=== PATIENT | male | born 1950 | race Hispanic/Latino ===

== ENCOUNTER 2024-05-03 22:54 | Emergency (ER) | payer OTHER ==
[2024-05-04] MEDS ORDERED: ONDANSETRON 4 MG/2 ML VIAL ONE (00:17)
[2024-05-04] MEDS ORDERED: FAMOTIDINE 20 MG/2 ML VIAL IV ONE (00:17)
[2024-05-04] MEDS ORDERED: MORPHINE 4 MG/ML SYR ONE (00:17)
[2024-05-04 00:59] LABS: Absolute Lymphocytes (CBC) 0.6 K/uL (0.7-4.9); Absolute Monocytes 0.7 K/uL (0.1-1.3); Absolute Neutrophil 12.6 K/uL (1.8-8.0); Basophils % 0.2 % (0-1.3); Hematocrit 40.1 % (39.6-49.0); Hemoglobin 13.3 g/dL (13.6-17.9); MCH 29.9 pg (27.0-35.0); MCHC 33.3 g/dL (32.0-36.0); MCV 89.9 fL (80-100); MPV 7.7 fL (7.6-11.3); Monocytes % 4.7 % (3.3-12.3); Neutrophils % 91.1 % (41.7-73.7); Nucleated Red Blood Cells % 0.1 % (0-0); Platelets 234 thou/uL (152-406); RBC Red Blood Cell Count 4.46 M/uL (4.33-5.43); Red Cell Distribution Width 13.9 % (12.1-15.2)
[2024-05-04 01:12] LABS: Albumin 4.2 g/dL (3.4-5.0); Bilirubin Direct 0.2 mg/dL (0-0.2); Bilirubin Indirect, Calculated 0.5 mg/dL (0.2-0.8); Bilirubin Total 0.7 mg/dL (0.2-1.0); Globulin 4.2 g/dL (2.3-3.5); Magnesium 2.3 mg/dL (1.6-2.4); Protein, Total 8.4 g/dL (6.4-8.2); Troponin High Sensitivity 6.5 pg/mL (<58.9)
[2024-05-04 01:16] LABS: PT Prothrombin Time 12.5 SECONDS (9.4-12.5); Protime INR 1.12
[2024-05-04 01:30] LABS: Band Neutrophils 13 % (0-1); Blood Morphology Comment NOT SEEN (NOT SEEN); Differential Total Cells Count 100; Eosinophils 1 % (0-3); Lymphocytes 8 % (15-42); Monocytes 7 % (0-10); Platelet Estimate ADEQ; Segmented Neutrophils 71 % (40-80)
--- NOTE | 2024-05-04 02:54 | EDPHYS ---
Physician Documentation [facility] Name: Delbert Pacheco Age: 73 yrs Sex: Male : 1950 Arrival Date: 05/03/2024 Time: 22:54 Bed 18 Private MD: ED Physician Chaitanya Ferrell HPI: 05/03 23:35 This 73 yrs old Male presents to ER via Ambulatory with complaints of cp Nausea/Vomiting, Abdominal Pain. 23:35 The patient presents to the emergency department with abdominal pain, of the right cp upper quadrant and left upper quadrant. Onset: The symptoms/episode began/occurred this morning, after eating breakfast. Associated signs and symptoms: Pertinent positives: nausea, vomiting, started this evening after working outside all day, Pertinent negatives: diarrhea, fever, GI bleeding. Severity of symptoms: in the emergency department the symptoms are unchanged despite home interventions. Historical: - Allergies: 23:13 No Known Allergies; jb4 - PMHx: 23:13 Hernia; jb4 - PSHx: 23:13 hernia repair. (Hernia); jb4 - Immunization history:: Adult Immunizations up to date. - Infectious Disease History:: Denies. - Social history:: Smoking status: Patient denies any tobacco usage or history of. Patient/guardian denies using alcohol, street drugs. ROS: 23:40 Constitutional: Positive for poor PO intake, Negative for body aches, fever, cp 23:40 Eyes: Negative for injury, pain, redness, and discharge, cp 23:40 Respiratory: Negative for cough, shortness of breath, wheezing, 23:40 Abdomen/GI: Positive for abdominal pain, nausea and vomiting, Negative for diarrhea, hematemesis, Exam: 23:45 Constitutional: The patient appears in no acute distress, alert, awake, cp non-diaphoretic, non-toxic, well developed, well nourished, uncomfortable, 23:45 Head/Face: Normocephalic, atraumatic. cp 23:45 Eyes: Periorbital structures: appear normal, Conjunctiva: normal, no exudate, no injection, Sclera: no appreciated abnormality, Lids and lashes: appear normal, bilaterally, 23:45 ENT: External ear(s): are unremarkable, Nose: is normal, Mouth: Lips: moist, Oral mucosa: pink and intact, moist, Posterior pharynx: Airway: no evidence of obstruction, patent, 23:45 Chest/axilla: Inspection: normal, 23:45 Cardiovascular: Rate: normal, Rhythm: regular, 23:45 Respiratory: the patient does not display signs of respiratory distress, Respirations: normal, no use of accessory muscles, no retractions, labored breathing, is not present, Breath sounds: are clear throughout, no decreased breath sounds, no stridor, no wheezing, 23:45 Abdomen/GI: Inspection: abdomen appears normal, Bowel sounds: active, all quadrants, Palpation: soft, in all quadrants, moderate abdominal tenderness, in the right upper quadrant and left upper quadrant, 23:45 Back: pain, is absent, 23:45 Neuro: Orientation: to person, place \T\ time. Mentation: is normal, Motor: moves all fours, no focal deficits, Sensation: is normal, 05/04 00:00 ECG was reviewed by the Attending Physician. Vital Signs: 05/03 23:11 BP 182 / 85; Pulse 75; Resp 16; Temp 96.8(TE); Pulse Ox 97% on R/A; Weight 89.81 kg jb4 (R); Height 5 ft. 5 in. ; 08 00:00 BP 149 / 84; Pulse 53; Resp 18; Pulse Ox 97% ; cp4 01:00 BP 124 / 65; Pulse 61; Resp 18; Pulse Ox 95% ; cp4 02:00 BP 136 / 74; Pulse 61; Resp 18; Pulse Ox 96% ; cp4 03:05 BP 123 / 65; Pulse 59; Resp 18; Temp 97.4; Pulse Ox 97% ; cp4 05/03 23:11 Body Mass Index 32.95 (89.81 kg, 165.1 cm) jb4 MDM: 05/03 23:28 Patient medically screened. cp 08 02:53 Data reviewed: vital signs. ED course: CT imaging shows enteritis, uncomplicated ec2 diverticulosis, lipoma noted. Will have the patient follow-up outpatient. Will discharge home with Zofran. Return precautions given. . 05/03 23:45 Order name: Basic Metabolic Panel; Complete Time: 01:36 cp 05/03 23:45 Order name: CBC with Diff; Complete Time: 01:36 cp 05/03 23:45 Order name: LFT's; Complete Time: 01:36 cp 05/03 23:45 Order name: Magnesium; Complete Time: 01:36 cp 05/03 23:45 Order name: PT-INR; Complete Time: 01:36 cp 05/03 23:45 Order name: Troponin HS; Complete Time: 01:36 cp 05/03 23:45 Order name: CK; Complete Time: 01:36 cp 05/03 23:45 Order name: Lipase; Complete Time: 01:36 cp 05/04 01:03 Order name: Manual Differential; Complete Time: 01:36 EDMS 08 23:45 Order name: XRAY Chest (1 view) cp 05/03 23:46 Order name: CT Abd/Pelvis - IV Contrast Only cp 05/03 23:45 Order name: Cardiac monitoring; Complete Time: 00:07 cp 05/03 23:45 Order name: EKG - Nurse/Tech; Complete Time: 00:07 cp 05/03 23:45 Order name: IV Saline Lock; Complete Time: 00:15 cp 05/03 23:45 Order name: Labs collected and sent; Complete Time: 00:15 cp 05/03 23:45 Order name: O2 Per Protocol; Complete Time: 00:07 cp 05/03 23:45 Order name: O2 Sat Monitoring; Complete Time: 00:07 cp EC:00 Rate is 65 beats/min. Rhythm is regular. OK interval is normal. QRS interval is normal. cp QT interval is normal. T waves are Inverted in lead aVR. Interpreted by me. Reviewed by me. Administered Medications: 00:26 Drug: Ondansetron IVP 4 mg IVP once; over 2 minutes Route: IVP; Site: right antecubital;cp4 03:07 Follow up: Response: No adverse reaction cp4 00:26 Drug: Famotidine IVP 20 mg IVP once; dilute with 10 mL 0.9% NaCl; give over 2 minutes cp4 Route: IVP; Site: right antecubital; 03:07 Follow up: Response: No adverse reaction cp4 00:26 Drug: morphine IVP or IV 4 mg IVP once over 4 mins Route: IVP; Infused Over: 4 mins; cp4 Site: right antecubital; 03:07 Follow up: Response: No adverse reaction; Pain is decreased cp4 Disposition: 02:53 I agree with the assessment and plan of care. ec2 Disposition Summary: 05/04/24 02:53 Discharge Ordered Notes: Location: Home ec2 Condition: Stable ec2 Diagnosis - Infectious gastroenteritis and colitis, unspecified ec2 Followup: ec2 - With: Private Physician - When: - Reason: Re-evaluation by your physician Discharge Instructions: - Discharge Summary Sheet ec2 - Viral Gastroenteritis, Adult ec2 Forms: - Medication Reconciliation Form ec2 - Antibiotic Education ec2 - Prescription Opioid Use ec2 - Patient Portal Instructions ec2 - Leadership Thank You Letter ec2 Prescriptions: - Zofran 4 mg Oral Tablet - take 1 tablet ORAL route every 12 hours As needed; 20 tablet; Refills: 0, ec2 Product Selection Permitted - dicyclomine 10 mg Oral capsule - take 1 capsule ORAL route 3 times per day; 20 capsule; Refills: 0, Product ec2 Selection Permitted Signatures: Dispatcher [employer] EDMS Choco Tripathi PA PA cp Nile Mason RN RN jb4 Chaitanya Ferrell MD MD ec2 Alma Parks cp4 Corrections: (The following items were deleted from the chart) 05/03 23:45 23:45 Chest Single View+[email or web address] ordered. EDWI EDMS
--- NOTE | 2024-05-04 02:54 | ER ---
Nurse's Notes [facility] Name: Delbert Pacheco Age: 73 yrs Sex: Male : 1950 Arrival Date: 05/03/2024 Time: 22:54 Bed 18 Private MD: Diagnosis: Infectious gastroenteritis and colitis, unspecified Presentation: 05/03 23:11 Chief complaint: Patient states: I am having nausea, vomiting, and abdominal cramps. It jb4 all started this morning. Coronavirus screen: At this time, the client does not indicate any symptoms associated with coronavirus-19. Ebola Screen: No symptoms or risks identified at this time. Initial Sepsis Screen: Does the patient meet any 2 criteria? No. Patient's initial sepsis screen is negative. Does the patient have a suspected source of infection? No. Patient's initial sepsis screen is negative. Risk Assessment: Do you want to hurt yourself or someone else? Patient reports no desire to harm self or others. Onset of symptoms was May 03, 2024. Transition of care: patient was not received from another setting of care. 23:11 Method Of Arrival: Ambulatory jb4 23:11 Acuity: CANDICE 3 jb4 Triage Assessment: 23:13 General: Appears in no apparent distress. uncomfortable, Behavior is calm, cooperative, jb4 appropriate for age. Pain: Complains of pain in abdomen. Neuro: Level of Consciousness is awake, alert, obeys commands, Oriented to person, place, time, situation. Cardiovascular: Patient's skin is warm and dry. Respiratory: Airway is patent Respiratory effort is even, unlabored, Respiratory pattern is regular, symmetrical. GI: Reports lower abdominal pain, upper abdominal pain, nausea, vomiting. Historical: - Allergies: 23:13 No Known Allergies; jb4 - PMHx: 23:13 Hernia; jb4 - PSHx: 23:13 hernia repair. (Hernia); jb4 - Immunization history:: Adult Immunizations up to date. - Infectious Disease History:: Denies. - Social history:: Smoking status: Patient denies any tobacco usage or history of. Patient/guardian denies using alcohol, street drugs. Screenin/09 02:11 [facility] ED Fall Risk Assessment (Adult) History of falling in the last 3 months, cp4 including since admission No falls in past 3 months (0 pts) Confusion or Disorientation No (0 pts) Intoxicated or Sedated No (0 pts) Impaired Gait No (0 pts) Mobility Assist Device Used No (0 pt) Altered Elimination No (0 pt) Score/Fall Risk Level 0 - 2 = Low Risk Oriented to surroundings, Maintained a safe environment, Assessed \T\ reinforced patient's understanding of fall precautions, Hourly rounding (assess needs \T\ fall precautionary measures) done. Abuse screen: Denies threats or abuse. Nutritional screening: No deficits noted. Tuberculosis screening: No symptoms or risk factors identified. Assessment: 02:11 General: Appears uncomfortable, Behavior is calm, cooperative, appropriate for age. cp4 Pain: Complains of pain in left upper quadrant and right upper quadrant and abdomen Pain currently is 9 out of 10 on a pain scale. Neuro: Level of Consciousness is awake, alert, obeys commands, Oriented to person, place, time, situation. Cardiovascular: No deficits noted. Respiratory: No deficits noted. GI: Abdomen is round non-distended, Bowel sounds present X 4 quads. Reports nausea, vomiting. Vital Signs: 05/03 23:11 BP 182 / 85; Pulse 75; Resp 16; Temp 96.8(TE); Pulse Ox 97% on R/A; Weight 89.81 kg jb4 (R); Height 5 ft. 5 in. ; 05/04 00:00 BP 149 / 84; Pulse 53; Resp 18; Pulse Ox 97% ; cp4 01:00 BP 124 / 65; Pulse 61; Resp 18; Pulse Ox 95% ; cp4 02:00 BP 136 / 74; Pulse 61; Resp 18; Pulse Ox 96% ; cp4 03:05 BP 123 / 65; Pulse 59; Resp 18; Temp 97.4; Pulse Ox 97% ; cp4 05/03 23:11 Body Mass Index 32.95 (89.81 kg, 165.1 cm) jb4 ED Course: 05/03 22:57 Patient arrived in ED. gm2 23:13 Triage completed. jb4 23:13 Arm band placed on right wrist. jb4 23:20 Alma Parks is Primary Nurse. cp4 23:28 Choco Tripathi PA is PHCP. cp 23:28 Chaitanya Ferrell MD is Attending Physician. cp 05/04 00:13 XRAY Chest (1 view) In Process Unspecified. EDMS 00:15 Initial lab(s) drawn, by me, sent to lab. Inserted saline lock: 22 gauge in right cp4 antecubital area, using aseptic technique. Blood collected. Flushed with 10 mL NS. 01:37 CT Abd/Pelvis - IV Contrast Only In Process Unspecified. EDMS 02:11 Bed in low position. Call light in reach. Side rails up X2. cp4 03:05 Provided Education on: viral gastroenteritis. cp4 03:05 No provider procedures requiring assistance completed. intact, bleeding controlled, No cp4 redness/swelling at site. Pressure dressing applied. Administered Medications: 00:26 Drug: Ondansetron IVP 4 mg IVP once; over 2 minutes Route: IVP; Site: right antecubital;cp4 03:07 Follow up: Response: No adverse reaction cp4 00:26 Drug: Famotidine IVP 20 mg IVP once; dilute with 10 mL 0.9% NaCl; give over 2 minutes cp4 Route: IVP; Site: right antecubital; 03:07 Follow up: Response: No adverse reaction cp4 00:26 Drug: morphine IVP or IV 4 mg IVP once over 4 mins Route: IVP; Infused Over: 4 mins; cp4 Site: right antecubital; 03:07 Follow up: Response: No adverse reaction; Pain is decreased cp4 Medication: 02:11 VIS not applicable for this client. cp4 Outcome: 02:53 Discharge ordered by . ec2 03:05 Discharged to home ambulatory, cp4 03:05 Condition: stable 03:05 Discharge instructions given to patient, family, Instructed on discharge instructions, follow up and referral plans. medication usage, Demonstrated understanding of instructions, follow-up care, medications, Prescriptions given X 2, 03:06 Patient left the ED. cp4 Signatures: Dispatcher [employer] EDVA Choco Tripathi PA PA cp Nile Mason, MICAHEL RN jb4 Chaitanya Ferrell MD MD ec2 Alma Parks cp4 Rachelle Wood 2
[2024-05-04 04:27] VITALS: BP 123/65; TEMP 97.4; O2SAT 97
--- NOTE | 2024-05-04 14:06 | EKG ---
Test Date: 2024-05-03 Test Time: 23:56:40 Senior [employer]iter: MEASUREMENT RESULTS: Intervals: Rate: 65 OH: 158 QRSD: 90 QT: 388 QTc: 403 [place]: P: 64 OH: 158 QRS: 41 T: 17 INTERPRETIVE STATEMENTS: Normal sinus rhythm with sinus arrhythmia Normal ECG Compared to ECG 01/05/2012 21:57:49 Sinus bradycardia no longer present Electronically Signed On 05-04-24 14:05:16 CDT by Sarthak He
--- NOTE | 2024-05-05 18:14 | RAD REPORT ---
EXAM DESCRIPTION: CT - Abdomen Pelvis W Contrast - 05/04/2024 1:35 am CLINICAL HISTORY: Male, 73 years old, ABD PAIN COMPARISON: None. TECHNIQUE: CT acquisition of the abdomen and pelvis following the administration of IV contrast. Cor onal and sagittal reformatted images provided. This exam was performed according to departmental dose -optimization program which includes automated exposure control, adjustment of the mA and/or kV accor ding to patient size, and/or use of iterative reconstruction technique. FINDINGS: SUPPORTIVE DEVICES: None. LOWER CHEST: Mild basilar scarring/atelectasis. Unremarkable imaged heart. ABDOMEN AND PELVIS: Liver: Diffuse hypoenhancement relative to the spleen. Subcentimeter hypodensity in segment VIII with out suspicious features. Gallbladder and bile ducts: Normal. Pancreas: Normal. Spleen: Normal. Adrenal glands: Normal. Kidneys and ureters: No acute finding. Mild symmetric perinephric stranding likely senescent. Bladder: Nondistended without evident abnormality. Reproductive organs: Prostatomegaly. GI tract: The distal esophagus is unremarkable. The stomach, a majority of small bowel loops, and the colon from the cecum to hepatic flexure are fluid distended with multiple short air-fluid levels. Mi ld small bowel wall and fold thickening is suggested. No evidence of appendicitis. Colonic diverticul osis without diverticulitis. Vessels: Atherosclerosis without evidence of aneurysm. Lymph nodes: No evident adenopathy. Peritoneum: No evidence of ascites, fluid collection, or free air. Abdominal wall: Nonseptated fat density 10.4 cm mass within the right posterolateral external abdomin al oblique muscle. MUSCULOSKELETAL: No acute osseous abnormality. IMPRESSION: 1. CT appearance of large and small bowel loops can be seen in the setting of enteriti s/enterocolitis. 2. Uncomplicated colonic diverticulosis. 3. Prostatomegaly. 4. Homogeneous fat density 10 cm right lateral abdominal wall intramuscular mass. Although attenuat ion is nonsuspicious, the enlarged size requires outpatient clinical follow-up and discussion for rep eat imaging interval. Electronically signed by: Gildardo Duong MD 05/04/2024 02:49 AM CDT RP Due to temporary technical issues with the PACS/Fluency reporting system, reports are being signed by the in house radiologists without review as a courtesy to insure prompt reporting. The interpreting radiologist is fully responsible for the content of the report.
--- NOTE | 2024-05-05 19:24 | RAD REPORT ---
EXAM DESCRIPTION: RAD - Chest Single View - 05/04/2024 12:11 am CLINICAL HISTORY: Vomiting. TECHNIQUE: Frontal view of the chest. COMPARISON: No relevant prior studies available. FINDINGS: Lungs: Unremarkable. No consolidation. Pleural space: Unremarkable. No pneumothorax. Heart: Unremarkable. No cardiomegaly. Mediastinum: Unremarkable. Normal mediastinal contour. Bones/joints: Multilevel spondylosis. No acute fracture. IMPRESSION: No acute disease. Electronically signed by: Jono Tai MD 05/04/2024 01:07 AM CDT Due to temporary technical issues with the PACS/Fluency reporting system, reports are being signed by the in house radiologists without review as a courtesy to insure prompt reporting. The interpreting radiologist is fully responsible for the content of the report.
== END 2024-05-04 03:06 | disposition home or self-care (01) ==
LOC: ER 22:54
DX: A09 Infectious gastroenteritis and colitis, unspecified (principal)
CPT/HCPCS: 93005; 85025; 80048; 36415; 83735; 82550; 85610; 80076; 84484; 83690; 74177; 71045; 96375; 96374; 99284; Q9967; J2405

== ENCOUNTER 2025-05-21 18:24 | Inpatient (IN) | payer OTHER ==
--- OUTSIDE RECORDS SUMMARY | 2025-05-21 18:29 | XMS REPORT | Continuity of Care Document ---
Author Name Unknown Address [address] [place] [address] [address] [place] [address] [facility] Address [address] [facility]. [address] [place] [address] Care Team Providers Care Master Fisher Name Role Phone MESHA KO Primary Care Physician Unavailab TESSY Card Attending Clinician Unavailable Payers Payer Name Policy Type Policy Number Effective Date Expirati on Date Source [employer] MANAGED MEDICARE PPO-GUNNAR [id number] 2021 00:00:00 Problems Condition Name Condition Details Condition Category Status Onset Date Resolution Date Last Treatment Date Treating Clinician Comments Source [facility] Active 03/10/2017 [facility] Diagnosis Active 03-10 00:00: 00 2017-03-11 01:32:00 Mau Guido HEMATOMA OF KIDNEY HEMATOMA OF KIDNEY Active 03/10/2017 [facility] Diagnosis Active 03-10 00:00: 00 2017-09-08 08:19:00 Mau Guido MINOR CONTUSION OF UNSPECIFIE D KIDNEY, I MINOR CONTUSION OF UNSPECIFIE D KIDNEY, I Active [facility] Diagnosis Active 2017-09-08 08:19:00 Mau Guido Allergies, Adverse Reactions, Alerts Allergy Name Allergy Type Status Severity Reaction(s) Onset Date Inactive Date Treating Clinician Comments Source NO KNOWN ALLERGIE S Drug Class Active [facility] Social History Social Habit Start Date Stop Date Quantity Comments Source Social History 2017-03-11 07:41:40 2017-03-11 07:41:40 Ritu Guido Medications Ordered Medication Name Filled Medication Name Start Date Stop Date Current Medication? Ordering Clinician Indication Dosage Frequency Signature (SIG) Comments Components Source celecoxib 100 mg oral capsule 03-12 17:08: 00 Yes 200 mg = 2 cap, PO, Q12H, # 56 cap, 0 Refill(s) Mau Guido acetaminoph en 500 mg oral tablet 03-12 17:08: 00 Yes 1,000 mg = 2 tab, PO, Q6H, X 14 day, # 112 tab, 0 Refill(s) Mau Guido gabapentin 300 MG Oral Capsule 03-12 17:08: 00 Yes 300 mg = 1 cap, PO, TID, # 90 cap, 0 Refill(s) Mau Guido POLYETHYLEN E GLYCOL 3350 142 MG/ML Oral Solution [Miralax] 03-12 17:08: 00 Yes 17 gm, PO, Daily, X 31 day, # 527 gm, 0 Refill(s) Mau Guido Lovenox 03-12 05:00: 00 No Notes: (Same as: Lovenox) Tracisoila [facility] [place] sennosides, HALF-WAY 03-12 02:00: 00 No Notes: (Same as: Senokot) Mau tan Hay remove patch 03-11 19:00: 00 No Notes: Remove patch 12 hours after applicatio n each day. Mau Cansecoann Docusate 03-11 14:00: 00 No Notes: (Same as: Colace) (Do Not Crush) Mau Guido POLYETHYLEN E GLYCOL 3350 03-11 14:00: 00 No Notes: Dissolve in 8 oz of water or juice. (Same as: Miralax) Tracisoila dominick Guido Zofran 03-11 13:22: 00 No Notes: (Same as: Zofran) MEDICATION WASTE Product Size: 4 mg Product Wasted: _0__ mg Mau Cansecoann Lidocaine Hydrochlori de 0.05 MG/MG Transdermal Patch [Lidoderm] 03-11 07:00: 00 No Notes: Apply only once for up to 12 hours in a 24-hour period (12 hours on and 12 hours off). (Same as: Lidoderm) "Remove old patch before applicatio n of new patch" Mau Guido Tramadol 03-11 06:11: 00 No Notes: Not to exceed 400mg/day. (Same As: Ultram) Mau Cansecoann celecoxib 03-11 06:11: 00 No Notes: NSAID. Please check indication . Not for seizure. (Same As: CeleBREX ) Mau Guido Acetaminoph en 03-11 06:11: 00 No Notes: Max acetaminop hen 4000 mg/day (4 gm/day). (Same as: Tylenol Extra Strength) Mau Guido Oxycodone Hydrochlori de 5 MG Oral Tablet 03-11 06:11: 00 No Notes: (Same as: Roxicodone ) Mau l Hay pregabalin 03-11 06:11: 00 No Notes: (Same as: Lyrica) Mau l [place] Saline Flush 0.9% 03-11 03:28: 00 No Notes: Same as: BD Posiflush Sterile Mau Cansecoann Vital Signs Vital Name Observation Time Observation Value Comments S ource Temperature Oral (F) 2017-03-12 16:46:00 96.3 F [facility] [place] Systolic (mm Hg) 2017-03-12 16:46:00 [facility] Diastolic (mm Hg) 2017-03-12 16:46:00 [facility] Respitory Rate 2017-03-12 16:46:00 [facility] [place] Heart Rate 2017-03-12 16:46:00 [facility] [place] Respitory Rate 2017-03-12 12:49:00 [facility] [place] Heart Rate 2017-03-12 12:49:00 [facility] Systolic (mm Hg) 2017-03-12 12:49:00 [facility] Diastolic (mm Hg) 2017-03-12 12:49:00 [facility] [place] Temperature Oral (F) 2017-03-12 12:49:00 96.7 F [facility] Temperature Oral (F) 2017-03-12 05:04:00 97.8 F [facility] Respitory Rate 2017-03-12 05:04:00 [facility] [place] Systolic (mm Hg) 2017-03-12 05:04:00 [facility] [place] Diastolic (mm Hg) 2017-03-12 05:04:00 [facility] [place] Heart Rate 2017-03-12 05:04:00 [facility] Height 2017-03-11 07:38:00 167.64 cm [facility] [place] BMI Calculated 2017-03-11 07:38:00 [facility] Weight 2017-03-11 07:38:00 [facility] [place] Weight 2017-03-11 03:00:00 [facility] [place] Encounters Start Date/Time End Date/Time Encounter Type Admission Type Attending [facility] Care Facility Care Department Encounter ID Source 2022-05-09 16:00:00 2022-05-09 16:39:47 Outpatient R [facility] [id number] [facility] 2017-03-11 02:59:00 2017-03-12 19:07:00 Observatio n nullFlavo r [facility] [id number] Mau Guido Results Test Description Test Time Test Comments Results Result Co mments Source [id number] 19:27:00* Test Item Value Reference Range Interpretation Comme nts Hgb (test code = Hgb) 11.9 14.0-18.0 Hct (test code = Hct) 35.9 42.0-54.0 [id number] 16:11:00* Test Item Value Reference Range Interpretation Comme nts Hct (test code = Hct) 34.2 42.0-54.0 Hgb (test code = Hgb) 11.5 14.0-18.0 [id number] 10:24:00* Test Item Value Reference Range Interpretation Comme nts WBC (test code = WBC) 9.4 3.7-10.4 MPV (test code = MPV) 7.6 7.4-10.4 Platelet (test code = Platelet) 183 133-450 RDW (test code = RDW) 14.4 11.5-14.5 MCHC (test code = MCHC) 34.5 32.0-36.0 MCV (test code = MCV) 85.2 80.0-94.0 MCH (test code = MCH) 29.4 pg 27.0-31.0 RBC (test code = RBC) 4.05 4.70-6.10 Segs (test code = Segs) 80.0 45.0-75.0 Eosinophils (test code = Eosinophils) 0.3 <=4.0 Basophils (test code = Basophils) 0.3 <=1.0 Monocytes # (test code = Monocytes #) 0.7 <=0.8 Lymphocytes # (test code = Lymphocytes #) 1.1 1.0-5.5 Segs-Bands # (test code = Se gs-Bands #) 7.5 1.5-8.1 Monocytes (test code = Monocytes) 7.8 2.0-12.0 Lymphocytes (test code = Lymphocytes) 11.6 20.0-40.0 [facility] AND [id number] 05:28:17* Test Item Value Reference Range Interpretation Comme nts UA Leuk Est (test code = UA Leuk Est) Negative (03/11/17 12:28 AM) UA Nitrite (test code = UA Nitrite) Negative (03/11/17 12:28 AM) UA Urobilinogen (test code = UA Urobilinogen) 0.2 0.1-1.0 UA Glucose (test code = UA Glucose) Negative (03/11/17 12:28 AM) UA Bili (test code = UA Bili) Negative *NA*(03/11/17 12:28 AM) UA Blood (test code = UA Blood) Small *ABN*(03/11/17 12:28 AM) UA Ketones (test code = UA Ketones) Trace *ABN*(03/11/17 12:28 AM) UA Protein (test code = UA Protein) Negative (03/11/17 12:28 AM) UA pH (test code = UA pH) 7.5 1 5.0-8.0 UA Turbidity (test code = UA Turbidity) Clear (03/11/17 12:28 AM) UA Color (test code = UA Color) Yellow *NA*(03/11/17 12:28 AM) UA Spec Grav (test code = UA Spec Grav) 1.010 1 UA Bacteria (test code = UA Bacteria) Few /HPF UA RBC (test code = UA RBC) 12-18 UA WBC (test code = UA WBC) 0-2 /HPF UA Sq Epi (test code = UA Sq Epi) None Seen (03/11/17 12:28 AM) [facility] [id number] 03:56:07* Test Item Value Reference Range Interpretation Comme nts eGFR (test code = eGFR) 80 BUN (test code = BUN) 19 7-22 Glucose Lvl (test code = Glucose Lvl) 132 70-99 Potassium Lvl (test code = P otassium Lvl) 3.6 3.5-5.1 Chloride Lvl (test code = Chloride Lvl) 104 95-109 Sodium Lvl (test code = Sodium Lvl) 139 135-145 Creatinine Lvl (test code = Creatinine Lvl) 0.99 0.50-1.40 Calcium Lvl (test code = Calcium Lvl) 7.9 8.5-10.5 CO2 (test code = CO2) 26 24-32 AGAP (test code = AGAP) 12.6 10.0-20.0 Lactic Acid Lvl (test code = Lactic Acid Lvl) 1.2 0.5-2.2 [id number] 03:56:07* Test Item Value Reference Range Interpretation Comme nts Lymphocytes # (test code = Lymphocytes #) 0.7 1.0-5.5 Monocytes # (test code = Mon ocytes #) 0.9 <=0.8 Segs (test code = Segs) 88.0 45.0-75.0 Basophils (test code = Basophils) 0.1 <=1.0 Segs-Bands # (test code = Segs-Bands #) 11.9 1.5-8.1 Monocytes (test code = Monocytes) 6.6 2.0-12.0 Eosinophils (test code = Eosinophils) 0.1 <=4.0 Lymphocytes (test code = Lymphocytes) 5.2 20.0-40.0 MPV (test code = MPV) 7.5 7.4-10.4 Platelet (test code = Platelet) 209 133-450 MCHC (test code = MCHC) 33.0 32.0-36.0 RDW (test code = RDW) 14.4 11.5-14.5 MCV (test code = MCV) 85.7 80.0-94.0 MCH (test code = MCH) 28.2 pg 27.0-31.0 RBC (test code = RBC) 4.44 4.70-6.10 WBC (test code = WBC) 13.5 3.7-10.4 Max Amplitude Rapid (test co de = Max Amplitude Rapid) 65 mm 52-71 Estimated % Lysis Rapid (duke t code = Estimated % Lysis Rapid) 1.1 <=7.5 G-value Rapid (test code = G -value Rapid) 9.2 5.0-11.6 Angle Rapid (test code = Ang le Rapid) 77 degrees 64-80 K-time Rapid (test code = K- time Rapid) 0.9 min 0.6-2.3 R-time Rapid (test code = R- time Rapid) 0.6 min 0.4-0.7 Split Point Rapid (test code = Split Point Rapid) 0.4 min ACT (TEG) Rapid (test code = ACT (TEG) Rapid) 105 s 86-118 [id number] 03:56:07* Test Item Value Reference Range Interpretation Comme nts Ethanol Lvl (test code = Ethanol Lvl) 1 Etoh (%) (test code = Etoh (%)) 0.001 [facility]burgSimilar Pages B[facility] [id number] 03:38:00* Test Item Value Reference Range Interpretation Comme nts ABO/Rh (test code = ABO/Rh) O POS Antibody Scrn (test code = Antibody Scrn) Negative (03/10/17 10:38 PM) [facility] [id number] 03:20:00* Test Item Value Reference Range Interpretation Comme nts U Amph Scr (test code = U Amph Scr) Negative *NA*(03/10/17 10:20 PM) U Yvette Scr (test code = U Yvette Scr) Negative *NA*(03/10/17 10:20 PM) U Benzodia Scr (test code = U Benzodia Scr) Negative *NA*(03/10/17 10:20 PM) U Opiate Scr (test code = U Opiate Scr) Positive *ABN*(03/10/17 10:20 PM) U Phencyc Scr (test code = U Phencyc Scr) Negative *NA*(03/10/17 10:20 PM) U Cannab Scr (test code = U Cannab Scr) Negative *NA*(03/10/17 10:20 PM) UDS Note (test code = UDS Note) See Note (03/10/17 10:20 PM) U Cocaine Scr (test code = U Cocaine Scr) Negative *NA*(03/10/17 10:20 PM) Ritu [id number] 03:13:00* Test Item Value Reference Range Interpretation Comme nts CDC HIV 4th GEN (test code = CDC HIV 4th GEN) Negative *NA*(03/10/17 10:13 PM) Ritu Hay Notes Date/Time Note Provider Source 2017-03-10 23:05:04 EXAM: CT CHEST WITH CONTRAST EXAM: CT ABDOMEN AND PELVIS WITH CONTRAST DATE: 03/10/2017 11:04 PM CDT INDICATION: - outside films COMPARISON: None. TECHNIQUE: Study performed at [facility] on 03/10/2017 at 1905 hours Volumetric acquisition of the chest, abdomen and pelvis following intravenous administration of contrast. Arterial phase imaging performed through the chest and abdomen. Venous phase imaging performed through the abdomen and pelvis. No delayed imaging performed. Axial images through the torso, and coronal and sagittal reformatted images of the spine. IV contrast: Yes Oral contrast: None. FINDINGS: Chest: No mediastinal hematoma or thoracic aortic injury. No pulmonary contusions or pleural fluid or pneumothorax. Incidentally noted 2.3 cm left thyroid lobe nodule. Abdomen: There is a left perinephric hematoma, most prominent on the posterior aspect, measuring about 11 mm thickness, with or without a subcapsular component. There is mild flattening of the posterior surface of the left kidney, without obvious laceration. Trace amount of fluid/stranding seen in the perisplenic region. However, no splenic parenchymal laceration is seen. Mild stranding is also seen in the posterior pararenal space of the left lower quadrant. No acute traumatic abnormality is seen in the liver, gallbladder, pancreas, adrenal glands, right kidney, and bowel. Colonic diverticulosis noted. No acute vascular injury or active contrast extravasation is seen in the arterial and venous phases. Scattered atherosclerotic calcifications are seen. Urinary bladder is not well-distended. Prostate gland is mildly enlarged. Spine/Bones: No acute fracture or malalignment seen in the thoracic and lumbar spine and bony pelvis. A T9 vertebral body hemangioma is seen. Soft Tissues: A right lower lateral chest wall lipoma is seen along the right latissimus dorsi muscle. IMPRESSION: 1. Left perinephric and/or subcapsular hematoma measuring about 11 mm in thickness, consistent with grade 1 injury. 2. Trace amount perisplenic fluid, without obvious splenic laceration. However, definitive evaluation is for parenchymal injury is not possible, as the spleen is not fully included on the reformatted images. Clinical correlation with serial abdominal exams recommended. 3. Trace amount of left posterior pararenal space stranding in the left lower quadrant. 4. Incidentally noted 2.3 cm left thyroid nodule. Follow-up with nonemergent thyroid ultrasound is recommended. [facility] 2017-03-10 22:59:41 EXAM: CT CERVICAL SPINE WITHOUT CONTRAST DATE: 03/10/2017 10:59 PM CDT INDICATION: - outside films COMPARISON: None. TECHNIQUE: Study performed at [facility] on 03/10/2017 at 1905 hours. Volumetric acquisition of the cervical spine without contrast. Axial, sagittal and coronal reconstructions. IV contrast: None. FINDINGS: The spine is imaged from the skull base to the level of T1. Beam hardening artifact limits assessment at C7-T1. No acute fracture or malalignment identified in the cervical spine. Prominent posterior disc osteophyte complex seen at C4-C5, with ventral thecal sac effacement. No pre or paravertebral hematoma seen. IMPRESSION: No acute fracture or malalignment in the cervical spine. [facility] 2017-03-10 22:00:00 EXAM: CT head withou t contrast DATE: 03/10/2017 INDICATION: Concussion without loss of consciousness. FINDINGS: Noncontrast CT images of the head are performed at an outside institution and submitted for reinterpretation following transfer. There is no intracranial hemorrhage or other brain injury. The calvarium and skull base are intact. There is some inflammatory sinus mucosal disease in the right sphenoid sinus. IMPRESSION: No acute injury. Concur with outside report. [facility]
[2025-05-21] MEDS ORDERED: ONDANSETRON 4 MG/2 ML VIAL ONE ×2 (19:31→19:40)
[2025-05-21] MEDS ORDERED: FAMOTIDINE 20 MG/2 ML VIAL IV ONE (19:32)
[2025-05-21] MEDS ORDERED: NA CHLORIDE 0.9% 1,000 ML ONE (19:32)
[2025-05-21] MEDS ORDERED: DICYCLOMINE HCL 20 MG/2 ML AMP IM ONE (19:32)
[2025-05-21 19:39] LABS: Absolute Lymphocytes (CBC) 0.9 K/uL (0.7-4.9); Hematocrit 44.3 % (39.6-49.0); Hemoglobin 15.0 g/dL (13.6-17.9); MCH 29.8 pg (27.0-35.0); MCHC 33.9 g/dL (32.0-36.0); MCV 87.7 fL (80-100); MPV 7.6 fL (7.6-11.3); Nucleated RBC Absolute Count 0.0 (0-0); Nucleated Red Blood Cells % 0.0 % (0-0); RBC Red Blood Cell Count 5.05 M/uL (4.33-5.43); White Blood Count 14.30 thou/uL (4.3-10.9)
[2025-05-21 19:52] LABS: ALT/SGPT 29.0 U/L (16-61); AST/SGOT 23.0 U/L (15-37); Albumin 4.5 g/dL (3.4-5.0); Albumin/Globulin Ratio 1.0 (1.1-1.8); Alkaline Phosphatase 112.0 U/L (45-117); Anion Gap 8.9 mEq/L (5.0-15.0); BUN Blood Urea Nitrogen 19.0 mg/dL (7-18); Globulin 4.3 g/dL (2.3-3.5); Glucose Level 199.0 mg/dL (74-106); Lipase 31.0 U/L (13-75); Potassium 3.9 mEq/L (3.5-5.1)
--- NOTE | 2025-05-21 20:41 | RAD REPORT ---
EXAM: Abdominal exam Limited ultrasound CLINICAL HISTORY: Abdominal pain COMPARISON: None FINDINGS: A gallstone is not seen. Gallbladder wall not thickened. Limited evaluation of the common bile duct. IMPRESSION: Unremarkable evaluation of the gallbladder Limited evaluation of the common bile duct
--- NOTE | 2025-05-21 21:16 | RAD REPORT ---
EXAMINATION: CT ABDOMEN AND PELVIS WITH CONTRAST CLINICAL INDICATION: Abdominal pain TECHNIQUE: CT abdomen and pelvis was performed, after the administration of 100 cc Isovue-300.. Sagit wendi and coronal reconstructions were obtained. One or more of the following dose reduction techniques were used: Automated exposure control, adjustment of the mA and kV according to patient si ze, and iterative reconstruction. Unless otherwise specified, incidental findings do not require dedicated imaging follow-up. [id number]. Oral contrast was not given which limits evaluation of bowel and appendix. COMPARISON: .2023 FINDINGS: Liver, spleen, pancreas, adrenals and kidneys appear unremarkable Mild to moderate dilatation of jejunum. Ileum is decompressed. No free air. No abscess. No ascites. Ventral hernia repair noted. Prostate gland mildly to moderately. 6.2 cm lipoma right posterior lateral abdominal wall without significant change. No evidence of diverticulitis : IMPRESSION: Small bowel obstruction
[2025-05-21] MEDS ORDERED: MORPHINE 4 MG/ML SYR ONE (21:49)
--- NOTE | 2025-05-21 21:55 | EDPHYS ---
Physician Documentation [facility] Name: Delbert Pacheco Age: 74 yrs Sex: Male : 1950 Arrival Date: 05/21/2025 Time: 18:24 Bed 12 Private MD: ED Physician Lalito Ashley HPI: 05/21 21:55 This 74 yrs old Male presents to ER via Ambulatory with complaints of kb Abdominal Cramping, Nausea/Vomiting. 21:55 Patient is a 74-year-old male who presents for abdominal pain, nausea, vomiting that kb started 6 hours prior to arrival. Denies diarrhea, fever. States last bowel movement was today.. Historical: - Allergies: 18:37 No Known Allergies; jl7 - Home Meds: 18:37 losartan oral [Active]; jl7 - PMHx: 18:37 Hernia; Hypercholesterolemia; Hypertensive disorder; jl7 - PSHx: 18:37 hernia repair. (Michael); jl7 - Immunization history:: Adult Immunizations unknown. - Infectious Disease History:: Denies. - Social history:: Smoking status: unknown. ROS: 21:54 Constitutional: As per HPI kb Exam: 21:54 Constitutional: This is a well developed, well nourished patient who is awake, alert, kb and in no acute distress. Head/Face: Normocephalic, atraumatic. ENT: Moist Mucous membranes Cardiovascular: Regular rate Respiratory: Respirations even and unlabored. No increased work of breathing. Talking in full sentences Skin: Warm, dry with normal turgor. Normal color. MS/ Extremity: Pulses equal, no cyanosis. Neurovascular intact. Full, normal range of motion. Neuro: Awake and alert, GCS 15, oriented to person, place, time, and situation. 21:54 Abdomen/GI: Inspection: abdomen appears normal, Bowel sounds: normal, Palpation: soft, in all quadrants, moderate abdominal tenderness, in the right upper quadrant, Vital Signs: 18:38 BP 183 / 83; Pulse 77; Resp 15; Pulse Ox 98% ; jl7 20:04 BP 163 / 73; Pulse 82; Resp 18 S; Pulse Ox 97% on R/A; ha1 21:00 BP 155 / 67; Pulse 75; Resp 16 S; Pulse Ox 97% on R/A; ha1 MDM: 18:32 Medical Screening Exam initiated kb 21:55 Data reviewed: vital signs, nurses notes. kb 21:55 Differential diagnosis: Cholelithiasis, cholecystitis, dehydration, abnormal kb electrolytes, small bowel obstruction, enteritis, gastritis. Consideration of Admission/Observation Patient was admitted/placed on observation. Escalation of care including admission/observation considered. Management of patient was discussed with the following: Hospitalist: Dr. Lamar accepts patient for admission. Vice President Client Services: Dr. Senior accepted patient for consult. Historians other than the Patient: Spouse/Significant Other: . Counseling: I had a detailed discussion with the patient and/or guardian regarding the historical points, exam findings, and any diagnostic results supporting the discharge/admit diagnosis, lab results, radiology results, the need for further work-up and treatment in the hospital. 05/21 18:36 Order name: CBC with Diff; Complete Time: 19:45 kb 05/21 18:36 Order name: CMP; Complete Time: 19:53 kb 05/21 18:36 Order name: Lipase; Complete Time: 19:53 kb 05/21 22:13 Order name: CBC with Automated Diff EDMN 05/21 22:13 Order name: CBC with Automated Diff EDMN 05/21 22:13 Order name: Comprehensive Metabolic Panel EDMN 05/21 22:13 Order name: Comprehensive Metabolic Panel EDMN 05/21 18:36 Order name: US Abdomen Limited; Complete Time: 20:47 kb 05/21 20:47 Order name: CT Abd/Pelvis - IV Contrast Only; Complete Time: 21:16 kb 05/21 22:13 Order name: CONS Physician Consult EDMN 05/21 18:36 Order name: IV Saline Lock; Complete Time: 19:45 kb 05/21 18:36 Order name: Labs collected and sent; Complete Time: 19:45 kb Administered Medications: 19:40 Drug: Famotidine IVP 20 mg IVP once; dilute with 10 mL 0.9% NaCl; give over 2 minutes ha1 Route: IVP; Site: right antecubital; 20:00 Follow up: Response: No adverse reaction; Marked relief of symptoms; Nausea is decreasedha1 19:40 Drug: NS 0.9% IV 1000 ml IV at 1 bolus Per protocol; to be given as a bolus over 60 ha1 minutes Route: IV; Rate: 1 bolus; Site: right antecubital; 21:00 Follow up: Response: No adverse reaction; IV Status: Completed infusion ha1 19:42 Drug: Ondansetron IVP 4 mg IVP once; over 2 minutes Route: IVP; Site: right antecubital;ha1 20:00 Follow up: Response: No adverse reaction; Nausea is decreased ha1 19:44 Drug: Dicyclomine IM 20 mg IM once Route: IM; Site: left deltoid; ha1 20:00 Follow up: Response: No adverse reaction; Marked relief of symptoms; Pain is decreased ha1 22:03 Drug: morphine IVP or IV 4 mg IVP once over 4 mins Route: IVP; Infused Over: 4 mins; ha1 Site: right antecubital; 22:30 Follow up: Response: No adverse reaction; Marked relief of symptoms; Pain is decreased; ha1 RASS: Alert and Calm (0) Disposition Summary: 05/21/25 21:54 Hospitalization Ordered Notes: Hospitalization Status: Inpatient Admission kb Provider: Santos Lamra [facility] Condition: Stable kb Problem: new kb Symptoms: are unchanged kb Bed/Room Type: Standard Room Assignment: 212(05/21/25 22:26) rv1 Diagnosis - Small Bowel Obstruction kb Forms: - Medication Reconciliation Form kb - SBAR form kb - Leadership Thank You Letter kb Addendum: 05/24/2025 07:25 Co-signature as Attending Physician, Lalito Ashley MD I reviewed the patient's care r n provided by the Advanced Practice Provider and agree with the diagnosis and treatment plan. Signatures: Dispatcher [employer] Evelina Lu, ELECTRICIAN MASTER-C ELECTRICIAN MASTER-Ckb Lalito Ashley MD MD rn Leal, Jahala RN RN jl7 Maryann Harvey RN RN ha1 Crystal Sales rv1 Corrections: (The following items were deleted from the chart) 05/21 20:48 20:48 Abdomen Pelvis W Con+CT.RAD.BRZ ordered. [facility] : 21:54 kb rv1
--- NOTE | 2025-05-21 21:55 | ER ---
Nurse's Notes [facility] Name: Delbert Pacheco Age: 74 yrs Sex: Male : 1950 Arrival Date: 05/21/2025 Time: 18:24 Bed 12 Private MD: Diagnosis: Small Bowel Obstruction Presentation: 05/21 18:36 Chief complaint: Patient states: N/V x 5-6 hours. Coronavirus screen: Client presents jl7 with at least one sign or symptom that may indicate coronavirus-19. Ebola Screen: No symptoms or risks identified at this time. Initial Sepsis Screen: Does the patient meet any 2 criteria? No. Patient's initial sepsis screen is negative. Does the patient have a suspected source of infection? No. Patient's initial sepsis screen is negative. Risk Assessment: Do you want to hurt yourself or someone else? Patient reports no desire to harm self or others. Onset of symptoms was May 21, 2025. 18:36 Method Of Arrival: Ambulatory [facility] 18:38 Acuity: CANDICE 3 jl7 Historical: - Allergies: 18:37 No Known Allergies; jl7 - Home Meds: 18:37 losartan oral [Active]; jl7 - PMHx: 18:37 Hernia; Hypercholesterolemia; Hypertensive disorder; jl7 - PSHx: 18:37 hernia repair. (Michael); jl7 - Immunization history:: Adult Immunizations unknown. - Infectious Disease History:: Denies. - Social history:: Smoking status: unknown. Screenin:03 [facility] ED Fall Risk Assessment (Adult) History of falling in the last 3 months, ha1 including since admission No falls in past 3 months (0 pts) Confusion or Disorientation No (0 pts) Intoxicated or Sedated No (0 pts) Impaired Gait No (0 pts) Mobility Assist Device Used No (0 pt) Altered Elimination No (0 pt) Score/Fall Risk Level 0 - 2 = Low Risk Oriented to surroundings, Maintained a safe environment, Educated pt \T\ family on fall prevention, incl call for assistance when getting out of bed, Hourly rounding (assess needs \T\ fall precautionary measures) done. Abuse screen: Denies threats or abuse. Denies injuries from another. Nutritional screening: No deficits noted. Tuberculosis screening: No symptoms or risk factors identified. Assessment: 19:50 General: Appears uncomfortable, Behavior is calm, cooperative. Pain: Complains of pain ha1 in epigastric area Pain currently is 9 out of 10 on a pain scale. Quality of pain is described as crampy. Neuro: Level of Consciousness is awake, alert, obeys commands, Oriented to person, place, time, situation. Cardiovascular: Capillary refill < 3 seconds Patient's skin is warm and dry. Respiratory: Airway is patent Respiratory effort is even, unlabored, Respiratory pattern is regular, symmetrical. GI: Abdomen is round non-distended, Bowel sounds present X 4 quads. Abd is soft and non tender X 4 quads. Abd is soft X 4 quads Reports upper abdominal pain, nausea, vomiting. Derm: Skin is pink, warm \T\ dry. Musculoskeletal: Circulation, motion, and sensation intact. 19:50 : No signs and/or symptoms were reported regarding the genitourinary system. ha1 20:06 Reassessment: Patient and/or family updated on plan of care and expected duration. Pain ha1 level reassessed. Patient is alert, oriented x 3, equal unlabored respirations, skin warm/dry/pink. Patient denies pain at this time. Patient states feeling better. Patient states symptoms have improved. 21:00 Reassessment: Patient and/or family updated on plan of care and expected duration. Pain ha1 level reassessed. Patient is alert, oriented x 3, equal unlabored respirations, skin warm/dry/pink. 21:46 Reassessment: Patient and/or family updated on plan of care and expected duration. Pain ha1 level reassessed. Patient is alert, oriented x 3, equal unlabored respirations, skin warm/dry/pink. 4/10. 22:30 Reassessment: Patient and/or family updated on plan of care and expected duration. Pain ha1 level reassessed. Patient is alert, oriented x 3, equal unlabored respirations, skin warm/dry/pink. Patient denies pain at this time. Patient states feeling better. Patient states symptoms have improved. Vital Signs: 18:38 BP 183 / 83; Pulse 77; Resp 15; Pulse Ox 98% ; jl7 20:04 BP 163 / 73; Pulse 82; Resp 18 S; Pulse Ox 97% on R/A; ha1 21:00 BP 155 / 67; Pulse 75; Resp 16 S; Pulse Ox 97% on R/A; ha1 ED Course: 18:25 Patient arrived in ED. am2 18:32 [facility]C [facility] kb 18:32 Lalito Ashley MD is Attending Physician. kb 18:38 Triage completed. jl7 18:38 Arm band placed on right wrist. jl7 19:00 Patient has correct armband on for positive identification. Placed in gown. Bed in low ha1 position. Call light in reach. Side rails up X 1. Adult w/ patient. 19:43 US Abdomen Limited In Process Unspecified. EDMS 19:44 Maryann Harvey, RN is Primary Nurse. ha1 21:06 CT Abd/Pelvis - IV Contrast Only In Process Unspecified. EDMS 21:54 Santos Lamar MD is Hospitalizing Provider. kb Administered Medications: 19:40 Drug: Famotidine IVP 20 mg IVP once; dilute with 10 mL 0.9% NaCl; give over 2 minutes ha1 Route: IVP; Site: right antecubital; 20:00 Follow up: Response: No adverse reaction; Marked relief of symptoms; Nausea is decreasedha1 19:40 Drug: NS 0.9% IV 1000 ml IV at 1 bolus Per protocol; to be given as a bolus over 60 ha1 minutes Route: IV; Rate: 1 bolus; Site: right antecubital; 21:00 Follow up: Response: No adverse reaction; IV Status: Completed infusion ha1 19:42 Drug: Ondansetron IVP 4 mg IVP once; over 2 minutes Route: IVP; Site: right antecubital;ha1 20:00 Follow up: Response: No adverse reaction; Nausea is decreased ha1 19:44 Drug: Dicyclomine IM 20 mg IM once Route: IM; Site: left deltoid; ha1 20:00 Follow up: Response: No adverse reaction; Marked relief of symptoms; Pain is decreased ha1 22:03 Drug: morphine IVP or IV 4 mg IVP once over 4 mins Route: IVP; Infused Over: 4 mins; ha1 Site: right antecubital; 22:30 Follow up: Response: No adverse reaction; Marked relief of symptoms; Pain is decreased; ha1 RASS: Alert and Calm (0) Medication: 20:04 VIS not applicable for this client. ha1 Outcome: 21:54 Decision to Hospitalize by Provider. kb 05/22 00:21 Patient left the ED. jj7 Signatures: Dispatcher [employer] EDEvelina Woodruff, KOBY THOMAS-Jack Alejandre RN RN jl7 Sahra Sarah Heidy, RN RN ha1 Uziel Zuñiga RN RN jj7
[2025-05-21] MEDS ORDERED: ACETAMINOPHEN 325 MG TABLET PO PRN (22:08)
[2025-05-21] MEDS ORDERED: ONDANSETRON 4 MG/2 ML VIAL IV PRN (22:08)
--- NOTE | 2025-05-21 22:08 | P.HP ---
Certification for Inpatient Patient admitted to: Inpatient With expected LOS: >2 Midnights Practitioner: I am a practitioner with admitting privileges, knowledge of patient current condition, hospital course, and medical plan of care. Services: Services provided to patient in accordance with Admission requirements found in Title 42 Section 412.3 of the Code of Federal Regulations Patient History Date of Service: 05/22/25 Reason for admission: Abdominal Pain History of Present Illness: 74 yo male with a past medical history of hypertension, hyperlipidemia, history of hernia status post hernia repair who was brought to ER with abdominal cramping and nausea and vomiting which started earlier today. Insidious in onset. Had bowel movement today. Abdominal pain is cramping in type. Diffuse in nature. Intermittent, associated with some nausea. Denies any diarrhea. No chest pain or shortness of breath. No fever or chills. No sick contacts. Patient was assessed in the ER and was admitted for further management of possible SBO Allergies NKDA Allergy (Uncoded 11/02/15 12:51) Unknown No Known Allergies Allergy (Uncoded 10/28/16 00:40) Unknown Home medications list reviewed: Yes Home Medications: Atorvastatin Calcium 20 mg PO BEDTIME 05/22/25 Losartan Potassium 50 mg PO BEDTIME 05/22/25 - Past Medical/Surgical History Past Medical History: Reviewed- Non-Contributory -: HTN, HLD Past Surgical History: Reviewed- Non-Contributory -: Hernia - Social History Smoking Status: Never smoker Review of Systems 10-point ROS is otherwise unremarkable Physical Examination - Vital Signs Temperature: 97.9 F Blood Pressure: 149/76 Pulse: 73 Respirations: 18 Pulse Ox (%): 94 - Physical Exam General: Alert, In no apparent distress, Oriented x3 HEENT: Atraumatic, Normocephalic Neck: Supple, No Thyromegaly Respiratory: Clear to auscultation bilaterally, Normal air movement Cardiovascular: Regular rate/rhythm, Normal S1 S2 Capillary refill: <2 Seconds Gastrointestinal: Soft and benign, Non-distended, W/out hepatosplenomegaly Musculoskeletal: No clubbing, No swelling Integumentary: No rashes Neurological: Other (Alert awake nonfocal) Lymphatics: No axilla or inguinal lymphadenopathy - Studies Laboratory Data (last 24 hrs) 05/21/25 05/21/25 19:26 19:26 WBC 14.30 H Hgb 15.0 Hct 44.3 Plt Count 245 Sodium 137 Potassium 3.9 BUN 19 H Creatinine 1.27 Glucose 199 H Total Bilirubin 0.7 AST 23 ALT 29 Alkaline Phosphatase 112 Lipase 31 Assessment and Plan - Plan Small bowel obstruction CT is consistent with a SBO N.p.o. for now Surgery was consulted by ER Pain control Monitor closely Hypertension Antihypertensives titrated Continue home medications and titrate as needed Hyperlipidemia Continue statin Dehydration Leukocytosis IV hydration Monitor CBC in a.m. GI/DVT prophylaxis Advanced directive full code Discharge Plan: Home Plan to discharge in: 48 Hours - Advance Directives Does patient have a Living Will: No Does patient have a Durable POA for Healthcare: No - Code Status/Comfort Care Code Status: Full Code Time Spent Managing Pts Care (In Minutes): 48
[2025-05-22] MEDS: NA CHLORIDE 0.9% 1,000 ML IV SCH (00:42)
[2025-05-22 02:59] VITALS: BMI 31.8
[2025-05-22 04:22] VITALS: O2SAT 97
[2025-05-22 05:03] LABS: Absolute Lymphocytes (CBC) 1.0 K/uL (0.7-4.9); Hematocrit 37.5 % (39.6-49.0); Hemoglobin 13.2 g/dL (13.6-17.9); MCH 30.7 pg (27.0-35.0); MCHC 35.1 g/dL (32.0-36.0); MCV 87.5 fL (80-100); MPV 7.7 fL (7.6-11.3); Nucleated RBC Absolute Count 0.0 (0-0); Nucleated Red Blood Cells % 0.0 % (0-0); RBC Red Blood Cell Count 4.28 M/uL (4.33-5.43); White Blood Count 9.70 thou/uL (4.3-10.9)
[2025-05-22 05:20] LABS: ALT/SGPT 27.0 U/L (16-61); Albumin 3.5 g/dL (3.4-5.0); Albumin/Globulin Ratio 1.1 (1.1-1.8); Alkaline Phosphatase 79.0 U/L (45-117); Anion Gap 7.1 mEq/L (5.0-15.0); BUN Blood Urea Nitrogen 21.0 mg/dL (7-18); Globulin 3.3 g/dL (2.3-3.5); Glucose Level 134.0 mg/dL (74-106)
[2025-05-22 05:21] LABS: Potassium 4.1 mEq/L (3.5-5.1)
[2025-05-22 05:22] LABS: AST/SGOT 16.0 U/L (15-37)
[2025-05-22] MEDS: ENOXAPARIN 40 MG/0.4 ML SQ SCH (07:47)
--- NOTE | 2025-05-22 14:01 | P.PN ---
Date of Service: 05/22/25 Subjective: Passing gas Last bowel movement a.m. of 05/21 Reports significant proved mid and abdominal pain and nausea No acute events overnight ROS: 10 point ROS as noted above, otherwise negative Physical exam GEN: Alert, oriented, NAD HEENT: Normal conjunctiva, sclera anicteric CV: Regular rate and rhythm, no edema Pulm: Nonlabored respirations on room air ABD: Soft, nontender, nondistended MSK: No joint tenderness Integumentary: No rashes Neuro: Normal speech, normal affect Vitals reviewed Assessment: Small bowel obstruction Hypertension Hyperlipidemia Plan: Small bowel obstruction NPO, IVF As needed pain meds and antiemetics surgical consult improving Hypertension Hyperlipidemia Hold oral meds for now Resume when tolerating PO DVT PPX:SCD Code status:Full code Time Spent Managing Pts Care (In Minutes): 35
--- NOTE | 2025-05-22 16:19 | RAD REPORT ---
Exam:Abdomen 1 View (KUB) Clinical history: Abdominal pain FINDINGS: Supine views of the abdomen obtained. Since most of the dilated small bowel seen on the recent CT is fluid-filled it is difficult to determ ine if the caliber has diminished. It is recommended that the patient have upright views of the abdomen for further evaluation. Air is present within portions of the colon so a complete small bowel obstruction is not present.
[2025-05-23 06:08] LABS: Hematocrit 35.3 % (39.6-49.0); Hemoglobin 12.4 g/dL (13.6-17.9); MCH 30.7 pg (27.0-35.0); MCHC 35.0 g/dL (32.0-36.0); MCV 87.8 fL (80-100); MPV 7.5 fL (7.6-11.3); RBC Red Blood Cell Count 4.02 M/uL (4.33-5.43); White Blood Count 6.90 thou/uL (4.3-10.9)
[2025-05-23 06:25] LABS: Anion Gap 7.1 mEq/L (5.0-15.0); BUN Blood Urea Nitrogen 17.0 mg/dL (7-18); Glucose Level 88.0 mg/dL (74-106); Potassium 4.1 mEq/L (3.5-5.1)
--- NOTE | 2025-05-23 11:24 | RAD REPORT ---
EXAMINATION: Small bowel series CLINICAL INDICATION: Male, 74 years old. SBO COMPARISON: CT abdomen and pelvis 05/21/2025. FINDINGS: User Experience Architect film shows a nonspecific bowel gas pattern. No obstruction or free air. No suspicious calcifica tions. Gastric size and mucosal fold pattern are normal. No delay in transit of contrast into the small jamie l. Small bowel is normal in diameter with no mucosal fold thickening, although resolution is suboptimal given dilated density of the water-soluble contrast. No intrinsic or extrinsic mass identi fiable. Terminal ileum has normal appearance. Transit time to the colon is Normal, 1.5 hours. No fluoroscopy was performed. Total images acquired:8 IMPRESSION: Normal small bowel series. Improvement of small bowel dilation prior CT.
[2025-05-23 12:23] VITALS: TEMP 98.1
--- NOTE | 2025-05-23 14:46 | P.DS ---
Admission Date: 05/21/25 Discharge Date: 05/23/25 Disposition: ROUTINE DISCHARGE Discharge Condition: GOOD Reason for Admission: Abdominal Pain Brief History of Present Illness: 74 yo male with a past medical history of hypertension, hyperlipidemia, history of hernia status post hernia repair who was brought to ER with abdominal cramping and nausea and vomiting which started earlier today. Insidious in onset. Had bowel movement today. Abdominal pain is cramping in type. Diffuse in nature. Intermittent, associated with some nausea. Denies any diarrhea. No chest pain or shortness of breath. No fever or chills. No sick contacts. Patient was assessed in the ER and was admitted for further management of possible SBO Hospital Course: Assessment: Small bowel obstruction Hypertension Hyperlipidemia Patient was initially admitted to the hospital for small bowel obstruction evident on CT. He was treated conservatively with n.p.o. status, IV fluids and had gradual improvement in his symptoms. He began passing gas on the first day, had a small bowel series this morning and was able to have a bowel movement after that. His small bowel series this morning was normal, he is tolerating food by mouth and is stable for discharge with outpatient follow-up with general surgery 1 to 2 weeks. Recommend soft, low fiber diet and adequate hydration. Vital Signs/Physical Exam: Temp Pulse Resp BP Pulse Ox 98.1 F 60 18 139/86 98 05/23/25 12:00 05/23/25 12:00 05/23/25 12:00 05/23/25 12:00 05/23/25 12:00 General: Alert, In no apparent distress, Oriented x3 HEENT: Atraumatic, PERRLA Neck: Supple, JVD not distended Respiratory: Clear to auscultation bilaterally, Normal air movement Cardiovascular: Regular rate/rhythm, Normal S1 S2 Gastrointestinal: Normal bowel sounds, No tenderness Musculoskeletal: No tenderness Integumentary: No rashes Neurological: Normal speech Laboratory Data at Discharge: WBC 6.90 thou/uL (4.3-10.9) 05/23/25 05:47 Hgb 12.4 g/dL (13.6-17.9) L 05/23/25 05:47 Hct 35.3 % (39.6-49.0) L 05/23/25 05:47 Plt Count 198 thou/uL (152-406) 05/23/25 05:47 Sodium 142 mEq/L (136-145) 05/23/25 05:47 Potassium 4.1 mEq/L (3.5-5.1) 05/23/25 05:47 BUN 17 mg/dL (7-18) 05/23/25 05:47 Creatinine 0.98 mg/dL (0.70-1.30) 05/23/25 05:47 Glucose 88 mg/dL (74-106) 05/23/25 05:47 Total Bilirubin 0.7 mg/dL (0.2-1.0) 05/22/25 04:34 AST 16 U/L (15-37) 05/22/25 04:34 ALT 27 U/L (16-61) 05/22/25 04:34 Alkaline Phosphatase 79 U/L (45-117) D 05/22/25 04:34 Lipase 31 U/L (13-75) 05/21/25 19:26 Home Medications: Atorvastatin Calcium 20 mg PO BEDTIME 05/22/25 Losartan Potassium 50 mg PO BEDTIME 05/22/25 Physician Discharge Instructions: Patient was initially admitted to the hospital for small bowel obstruction evident on CT. He was treated conservatively with n.p.o. status, IV fluids and had gradual improvement in his symptoms. He began passing gas on the first day, had a small bowel series this morning and was able to have a bowel movement after that. His small bowel series this morning was normal, he is tolerating food by mouth and is stable for discharge with outpatient follow-up with general surgery 1 to 2 weeks. Recommend soft, low fiber diet and adequate hydration. Diet: soft Activity: Ad alex Followup: Parvin Cole DO, DO [Primary Care Provider] - 1-2 Weeks Dao Senior MD [ACTIVE - CAN ADMIT] - 1-2 Weeks Time spent managing pt's care (in minutes): 37
[2025-05-23 15:39] VITALS: BP 131/59
--- NOTE | 2025-05-23 19:02 | PN ---
Date of Progress Note: 05/23/2025 Diagnosis: History of small-bowel obstruction. Subjective: The patient is doing better. No nausea, no vomiting. Starting to tolerate diet. Objective: Chest: Clear. Abdomen: Benign. Extremities: Good capillary refill. Laboratory Data: Small-bowel series negative. Plan: Advance diet. He was advised if he tolerates diet, he can go home, but he has to follow with us ideally in a week from now. He also was advised to follow with the loans officer to make francine e his endoscopies are up to date. He understands that sometimes it is difficult to find the etiology of bowel obstruction. We may have some other workup that have to be done if this continues mainly b y the loans officer. There is always an option for diagnostic lap or exploratory laparotomy, bu t now the risks outweigh the benefits. He wants to try conservative treatment. CAROLYN/DANUTA Voice ID: [id number] Report ID: [id number]
== END 2025-05-23 16:15 | disposition home or self-care (01) | DRG 390 ==
LOC: ER 18:24 → ERHOLD 22:08 → 2ND 23:50
PROVIDERS: ADMIT Family Medicine; ATTEND Hospitalist
DX: K56.609 Unspecified intestinal obstruction, unspecified as to partial versus complete obstruction (principal); E86.0 Dehydration; I10 Essential (primary) hypertension; E78.00 Pure hypercholesterolemia, unspecified; D72.829 Elevated white blood cell count, unspecified; Z79.899 Other long term (current) drug therapy
CPT/HCPCS: 36415; 74018; 74177; 74250; 76705; 80048; 80053; 83690; 85025; 85027; 96361; 96372; 96374; 96375; 99284; J0500; J1650; J2405; J7030; Q9967